=== PATIENT | female | born 1980 | race Caucasian/White ===

== ENCOUNTER 2020-10-15 17:39 | Emergency (ER) | payer OTHER ==
[~2020-10-15 17:39] MED LIST: Iopamidol 370 76% 100 ML VIAL ONE
[2020-10-15] MEDS ORDERED: Sodium Chloride 0.9% 1,000 ML ONE (18:07)
[2020-10-15] MEDS ORDERED: Ondansetron PF 4 MG/2 ML Vial ONE (18:07)
[2020-10-15 18:27] LABS: #Eosinphils 0.1 thou/uL (0.0-0.7); #Monocytes 0.3 thou/uL (0.11-0.59); #Neutrophils 2.2 thou/uL (1.40-6.50); %Basophils 0.4 % (0.0-1.0); %Eosinophils 1.9 % (0.0-10.0); %Lymphocytes 27.8 % (21.0-51.0); %Monocytes 9.1 % (0.0-10.0); %Neutrophils 60.8 % (42.0-75.0); BHCG - Serum Negative (NEGATIVE); Mean Corpuscular HGB CONC 31.5 g/dL (32.0-36.0); Mean Corpuscular Hemoglobin 28.5 pg (27.0-31.0); Mean Corpuscular Volume 90.6 fL (78.0-98.0); Mean Platelet Volume 12.5 fL (7.4-10.4); Platelet Count 155 thou/uL (130-400); Pregs Control Background? CLEAR/WHITE (CLR/WHITE); Pregs Control Bar Appear? YES (CONTROL BAR); RBC Distribution Width 11.4 % (11.5-14.5); White Blood Cell (WBC) Count 3.6 thou/uL (4.8-10.8)
[2020-10-15 18:36] LABS: ALT (SGPT) 27 U/L (8-55); AST (SGOT) 25 U/L (5-34); Alkaline Phosphatase 74 U/L (40-110); Anion Gap 14 mmol/L (10-20); BUN (Urea Nitrogen) 11 mg/dL (7.0-18.7); Bilirubin, Total 0.4 mg/dL (0.2-1.2); Calc. Creatinine Clearance 0 mL/min (70-130); Carbon Dioxide 24 mmol/L (22-29); Chloride 108 mmol/L (98-107); Globulin 3.2 g/dL (2.4-3.5); Glucose 104 mg/dL (70-105); Lipase 454 U/L (8-78); Potassium 3.6 mmol/L (3.5-5.1); Protein, Total 7.2 g/dL (6.0-8.3); Sodium 142 mmol/L (136-145)
[2020-10-15 18:56] LABS: Large Platelets SLIGHT
[2020-10-15 18:57] LABS: Platelet Morphology Comment Appears Adequate
[2020-10-16 17:07] LABS: SARS-CoV-2 PCR by NAA DETECTED (NotDetected)
== END 2020-10-15 20:54 | disposition home or self-care (01) ==
LOC: MADERS 17:39
DX: U07.1 COVID-19 (principal); R10.13 Epigastric pain; E03.9 Hypothyroidism, unspecified
CPT/HCPCS: 71045; 74177; 80053; 83690; 84703; 85025; 93005; 96374; J2405; J7050; Q9967; U0003; U0005